=== PATIENT | male | born 1970 | race Caucasian/White ===

== ENCOUNTER 2022-02-18 16:58 | Emergency (ER) | payer OTHER ==
[~2022-02-18] VITALS: Ht 182.9 cm; Wt 93.0 kg
--- NOTE | 2022-02-18 17:04 | NUR ---
ROSETTA VICKERS, TO NICHOL KAUFMAN.
[2022-02-18 17:07] VITALS: BP 149/87
[2022-02-18] MEDS ORDERED: ACETAMINOPHEN EXTRA STRENGTH 500 MG TAB PO ONE (17:35)
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
[2022-02-18] MEDS ORDERED: ACETAMINOPHEN EXTRA STRENGTH 500 MG TAB ONE (19:49)
[2022-02-18 20:11] LABS: BASOPHILS # (AUTO) 0.1 K/uL (0.00-0.22); BASOPHILS % (AUTO) 0.4 % (0.0-2.0); EOSINOPHILS # (AUTO) 0.1 K/uL (0-0.4); EOSINOPHILS % (AUTO) 0.5 % (0.0-4.0); HEMATOCRIT 45.6 % (36-52); HEMOGLOBIN 15.4 g/dL (12.0-18.0); LYMPHOCYTES # (AUTO) 1.5 K/uL (2.0-11.5); LYMPHOCYTES % (AUTO) 11.7 % (20.5-51.1); MEAN CORPUSCULAR HEMOGLOBIN 32 pg (27-31); MEAN CORPUSCULAR HGB CONC 34 g/dL (33-37); MEAN CORPUSCULAR VOLUME 93.6 fL (80-94); MONOCYTES # (AUTO) 0.8 K/uL (0.8-1.0); NEUTROPHILS # (AUTO) 10.5 K/uL (1.8-7.7); NEUTROPHILS % (AUTO) 81.4 % (42.2-75.2); PLATELET COUNT (AUTO) 222 K/uL (140-450); RED BLOOD CELL COUNT(AUTO) 4.87 MIL/uL (4.20-6.10); RED CELL DISTRIBUTION WIDTH 13.1 % (11.6-13.7); WHITE BLOOD COUNT (AUTO) 12.9 K/uL (4.8-10.8)
[2022-02-18 20:25] LABS: ALBUMIN 3.9 g/dL (3.4-5.0); ANION GAP 12.3 (8-16); CARBON DIOXIDE 27.8 mmol/L (21-32); POTASSIUM 4.1 mmol/L (3.5-5.1); TOTAL BILIRUBIN 0.4 mg/dL (0.0-1.0)
[2022-02-18] MEDS ORDERED: NACL 0.9% 1,000 ML IV ONE ×2 (21:50→23:25)
--- NOTE | 2022-02-18 23:45 | NUR ---
Dr. Peralta examining patient.
[2022-02-18] MEDS ORDERED: ACET-8386 PO (23:54)
[2022-02-18] MEDS ORDERED: NAPR-54 PO (23:54)
--- NOTE | 2022-02-19 | NUR ---
INSTRUCTED ON USE OF INCENTIVE SPYROMETER
[2022-02-19 00:20] VITALS: BP 152/91
--- NOTE | 2022-02-19 00:20 | NUR ---
Patient discharged with v/s stable. Written and verbal after care instructions given and explained. Patient alert, oriented and verbalized understanding of instructions. Ambulatory with steady gait. All questions addressed prior to discharge. ID band removed. Patient advised to follow up with PMD. Rx of NAPROXEN, AND HYDROCODONE given. Patient educated on indication of medication including possible reaction and side effects. Opportunity to ask questions provided and answered.
== END 2022-02-19 00:20 | disposition home or self-care (01) ==
LOC: MED 16:58
DX: S22.20XA Unspecified fracture of sternum, initial encounter for closed fracture (principal); V49.88XA Car occupant (driver) (passenger) injured in other specified transport accidents, initial encounter; Y93.89 Activity, other specified; Y92.89 Other specified places as the place of occurrence of the external cause; Y99.8 Other external cause status
CPT/HCPCS: 36415; 70450; 71046; 71120; 71260; 72050; 72072; 72125; 74177; 80053; 85025; 93005; 96360; 99285; J7030; Q9967